=== PATIENT | female | born 1960 | race Caucasian/White ===

== ENCOUNTER → 2018-01-16 | Outpatient (CLI) | payer OTHER ==
[~2018-01-16] MED LIST: ADVAIRDISKUS; ALDACTONE PO; ALDACTONE50 MG PO; AMBIEN 5 MG TABL5 M1 PO; CELEBREX; CELEBREX 200 M200 MG PO; CIPROFLOXACIN500 M1 PO; COMBIVENT INH; ENABLEX15 MG PO; FLEXERIL; INDERAL LA 80 M80 M1 PO; LOVENOX SQ; NORCO 5-325 TA1 EACH PO; OXYIR5 MG PO; PHENAZOPYRIDIN200 M2 PO; PHENERGAN 25 MG25 MG PO; RESTORIL30 MG PO; SINGULAIR; SINGULAIR 10 MG10 M1 PO; TRAMADOL 50 MG50 MG PO; TYLENOL EXTRA500 MG PO
[2018-01-16 16:24] LABS: ABSOLUTE BASOPHILS 0.1 thou/uL (0.0-0.2); ABSOLUTE EOSINOPHILS 0.3 thou/uL (0.0-0.7); ABSOLUTE LYMPHOCYTES 2.5 thou/uL (0.8-5.3); ABSOLUTE MONOCYTES 0.8 thou/uL (0.0-1.2); ABSOLUTE NEUTROPHILS 3.8 thou/uL (1.6-8.1); BASOPHILS 1.1 %; EOSINOPHILS 3.4 %; HEMATOCRIT 42.3 % (37.0-47.0); HEMOGLOBIN 14.4 gm/dL (12.0-15.0); LYMPHOCYTES 33.8 %; MCH 30.5 pg (26.0-34.0); MCV 89.4 fL (80.0-100.0); MONOCYTES 10.6 %; MPV 7.2 fl. (7.2-11.1); NUCLEATED RBCS 0 /100WBC; PLATELET COUNT* 356 thou/uL (150-400); POLYS 51.1 %; RBC 4.73 mil/uL (4.20-5.00); RDW-CV 12.8 % (10.5-14.5); WBC 7.3 thou/uL (4.0-11.0)
[2018-01-16 16:36] LABS: CALCIUM 9.6 mg/dL (8.5-10.1); POTASSIUM 3.5 mmol/L (3.5-5.1)
[2018-01-16 16:38] LABS: AMP/METHAMP Negative (Negative); BARBITURATES Negative (Negative); BENZODIAZEPINES Negative (Negative); COCAINE Negative (Negative); METHADONE Negative (Negative); OPIATES Negative (Negative); PCP Negative (Negative); THC Negative (Negative)
--- NOTE | 2018-01-16 16:46 | EKG ---
[place] [address] ELECTROCARDIOGRAM REPORT Name: VANGIE FLORES Room: [facility]#: [id number] Admission: 01/16/18 Attend Phys: Rikki Daniel MD Discharge: Date of : 62 Report #: [id number] THIS REPORT FOR: //name// [facility] Test Date: 2018-01-16 Test Time: 16:06:20 Pat Name: VANGIE FLORES Department: Room: Gender: F [employer]: SKY : 1960 Requested By: Rikki Daniel Order Number: [id number] Reading MD: Armando Delong Measurements Intervals [place] Rate: 75 P: 66 CA: 170 QRS: -63 QRSD: 118 T: 74 QT: 421 QTc: 471 Interpretive Statements Sinus rhythm Incomplete RBBB and LAFB Compared to ECG 08/02/2010 09:37:34 no change Electronically Signed On 01-16-2018 16:45:51 [employer] CHEMI[employer] by Armando Delong [email or web address] <ELECTRONICALLY SIGNED> By: Armando Delong MD, [facility] 01/16/18 1645 1606 1606 Armando Delong MD, FACC /EPI
== END ==
LOC: M.RAD 15:51
PROVIDERS: Urology
DX: Z01.818 Encounter for other preprocedural examination (principal)

== ENCOUNTER 2018-01-29 11:01 | Emergency (ER) | payer OTHER ==
[~2018-01-29] VITALS: Ht 167.6 cm; Wt 120.6 kg
[~2018-01-29 11:01] MED LIST changes: -AMBIEN 5 MG TABL5 M1 PO; -CIPROFLOXACIN500 M1 PO; -PHENAZOPYRIDIN200 M2 PO; -PHENERGAN 25 MG25 MG PO; -TRAMADOL 50 MG50 MG PO; -TYLENOL EXTRA500 MG PO
[2018-01-29] MEDS ORDERED: SINGULAIR 10 MG10 M1 PO (11:12)
[2018-01-29] MEDS ORDERED: AMBIEN 5 MG TABL5 M1 PO (11:12)
[2018-01-29] MEDS ORDERED: TRAMADOL 50 MG50 MG PO (11:12)
[2018-01-29] MEDS ORDERED: TYLENOL EXTRA500 MG PO (11:12)
[2018-01-29] MEDS ORDERED: PHENAZOPYRIDIN200 M2 PO (11:13)
[2018-01-29 11:30] LABS: HEMATOCRIT 38.2 % (37.0-47.0); MCH 30.1 pg (26.0-34.0); MCV 88.8 fL (80.0-100.0); MPV 8.2 fl. (7.2-11.1); NUCLEATED RBCS 0 /100WBC; PLATELET COUNT* 201 thou/uL (150-400); RDW-CV 12.9 % (10.5-14.5); WBC 12.1 thou/uL (4.0-11.0)
[2018-01-29 11:37] LABS: CALCIUM 8.2 mg/dL (8.5-10.1); CREATININE 0.9 mg/dL (0.6-1.3)
[2018-01-29 11:39] LABS: POTASSIUM 2.9 mmol/L (3.5-5.1)
[2018-01-29 11:42] LABS: ALBUMIN 2.6 g/dL (3.4-5.0); TOTAL BILIRUBIN 0.7 mg/dL (<0.1-1.0); TOTAL PROTEIN 6.2 g/dL (6.4-8.2)
[2018-01-29 12:23] LABS: ABSOLUTE LYMPHOCYTES 1.9 thou/uL (0.8-5.3); ABSOLUTE NEUTROPHILS 9.2 thou/uL (1.6-8.1)
[2018-01-29 12:24] LABS: ANISOCYTOSIS 1+; PLATELET ESTIMATE ADEQUATE; POIKILOCYTOSIS 1+; POLYCHROMASIA 1+
[2018-01-29 12:25] LABS: TOXIC GRANULATION Occasional
[2018-01-29 12:34] LABS: URINE BILIRUBIN NEGATIVE (Negative); URINE BLOOD 3+ (Negative); URINE CLARITY CLEAR; URINE COLOR YELLOW; URINE GLUCOSE-RANDOM NEGATIVE (Negative); URINE KETONES NEGATIVE (Negative); URINE LEUKOCYTES-REFLEX 2+ (Negative); URINE NITRITE-REFLEX POSITIVE (Negative); URINE PROTEIN 1+ (Negative); URINE UROBILINOGEN 0.2 E.U./dl (0.2-1.0)
[2018-01-29 12:37] LABS: CASTS None Seen /LPF (None Seen); CRYSTALS None Seen /LPF (None Seen); MUCUS 0-3 Light strn/LPF (None Seen); SQUAMOUS 0-3 Few /LPF (0-3); URINE RBC 0-2 Rare /HPF (0-2)
[2018-01-29] MEDS ORDERED: CIPROFLOXACIN500 M1 PO (13:13)
[2018-01-29] MEDS ORDERED: PHENERGAN 25 MG25 MG PO (13:14)
[2018-01-29 13:23] VITALS: BP 105/66
== END 2018-01-29 13:24 | disposition home or self-care (01) ==
LOC: M.ERS 11:01
PROVIDERS: Emergency Medicine
DX: M54.5 Low back pain (principal); R19.7 Diarrhea, unspecified; J45.909 Unspecified asthma, uncomplicated; K21.9 Gastro-esophageal reflux disease without esophagitis; Z87.442 Personal history of urinary calculi; Z96.653 Presence of artificial knee joint, bilateral; Z91.048 Other nonmedicinal substance allergy status; Z88.1 Allergy status to other antibiotic agents; Z88.0 Allergy status to penicillin; Z88.2 Allergy status to sulfonamides

== ENCOUNTER → 2019-07-17 | Outpatient (CLI) | payer OTHER ==
[~2019-07-17] MED LIST changes: +AMBIEN 5 MG TABL5 M1 PO; +CIPROFLOXACIN500 M1 PO; +PHENAZOPYRIDIN200 M2 PO; +PHENERGAN 25 MG25 MG PO; +TRAMADOL 50 MG50 MG PO; +TYLENOL EXTRA500 MG PO
--- NOTE | 2019-07-17 12:31 | 2DMMODE ---
[place] [address] 2 D/M-MODE ECHOCARDIOGRAM Name: VANGIE FLORES Room: [facility]#: [id number] Admission: 07/17/19 Attend Phys: Jeromy Katz Discharge: Date of : 62 Date of Service: 07/17/19 1229 Report #: [id number] THIS REPORT FOR: cc: Renato Reyes John E. DO Liston, Michael J. MD [facility] ~ APPROVED REPORT Study performed: 07/17/2019 11:03:03 EXAM: Limited 2D Echocardiogram Patient Location: Out-Patient Status: routine BSA: 2.30 HR: 70 bpm BP: 120/84 mmHg Rhythm: NSR Other Information Study Quality: Adequate Indications Chemo Volumes Left Atrial Volume (Systole) LA ESV Index: 27.00 mL/m2 Left Ventricle The left ventricle is normal size. There is normal LV segmental wall motion. There is normal left ventricular wall thickness. The left ventricular systolic function is normal. LVEF is 65-70%. Right Ventricle The right ventricle is normal size. The right ventricular systolic function is normal. Atria The left atrium size is normal. The right atrium size is normal. Aortic Valve The aortic valve is normal in structure. [address] [address] 2 D/M-MODE ECHOCARDIOGRAM Name: VANGIE FLORES Room: [facility]#: [id number] Admission: 07/17/19 Attend Phys: Jeromy Katz Discharge: Date of : 62 Date of Service: 07/17/19 1229 Report #: [id number] Mitral Valve The mitral valve is normal in structure. Tricuspid Valve The tricuspid valve is normal in structure. Pulmonic Valve The pulmonary valve is normal in structure. Great Vessels The aortic root is normal in size. IVC is normal in size and collapses >50% with inspiration. Pericardium There is no pericardial effusion. <Conclusion> The left ventricle is normal size. There is normal left ventricular wall thickness. The left ventricular systolic function is normal. LVEF is 65-70%. Left ventricular wall motion is normal. Unable to calculate global longitudinal shortening due to poor endocardial definition. <ELECTRONICALLY SIGNED> By: Pawan Ott MD, FACC 07/17/19 1229 28 28 Pawan Ott MD, FACC /INF
--- NOTE | 2019-07-17 12:47 | NUR ---
RIGHT CEPHALIC VESSEL ACCESSED FOR SINGLE LUMEN 4 TAMAZIGHT PICC. LINE PRE-TRIMMED TO 41 CM AND ADVANCED TO THE ZERO LUKE WITH NO RESISTANCE MET. UPPER ARM CIRCUMFERENCE ABOVE INSERTION SITE= 19 1/2". SHERLOCK MAGNET AND 3CG CONFIIRMATION OF TIP TERMINATION AT THE CAVOATRIAL JUNCTION APPRECIATED. GUIDEWIRE REMOVED, LINE FLUSHED AND INSERTION SITE DRESSED. POST PROCEDURE VITALS: T=98.5, P=73, B/P=148/92, R=18, SPO2= 94% ON R/A. PATIENT DENIES ANY, PAIN, SHORTNESS OF AIR OR DIFFICULTY AFTER INSERTION. DISMISSED WITH DISCHARGE INSTRUCTIONS AND EDUCATIONAL PAMPHLET.
== END | disposition home or self-care (01) ==
LOC: M.CRD 07-16 11:31 → M.INFUS 12:00 → M.CRD 07-28 13:00
DX: C85.90 Non-Hodgkin lymphoma, unspecified, unspecified site (principal); Z98.890 Other specified postprocedural states; Z79.899 Other long term (current) drug therapy; Z88.8 Allergy status to other drugs, medicaments and biological substances; Z88.0 Allergy status to penicillin

== ENCOUNTER → 2019-12-03 | Outpatient (CLI) | payer OTHER | LOC: M.MRI 11-27 17:30 | PROVIDERS: ATTEND Orthopaedic Surgery | DX: M19.012 Primary osteoarthritis, left shoulder (principal); M75.122 Complete rotator cuff tear or rupture of left shoulder, not specified as traumatic; M25.412 Effusion, left shoulder; M25.712 Osteophyte, left shoulder; M25.812 Other specified joint disorders, left shoulder ==

== ENCOUNTER 2020-03-05 17:00 | Emergency (ER) | payer OTHER ==
[~2020-03-05] VITALS: Ht 167.6 cm; Wt 117.9 kg
[2020-03-05] MEDS ORDERED: LIPITOR40 MG PO (17:21)
[2020-03-05] MEDS ORDERED: TRAMADOL 50 MG50 MG PO (17:21)
[2020-03-05] MEDS ORDERED: NORCO 10-325 T1 EACH PO (17:22)
[2020-03-05] MEDS ORDERED: NABUMETONE 750750 M1 PO (18:04)
[2020-03-05 18:10] VITALS: BP 147/89
== END 2020-03-05 18:10 | disposition home or self-care (01) ==
LOC: M.ERS 17:00
DX: M79.672 Pain in left foot (principal); R60.0 Localized edema; J45.909 Unspecified asthma, uncomplicated; K21.9 Gastro-esophageal reflux disease without esophagitis; Z88.1 Allergy status to other antibiotic agents; Z88.0 Allergy status to penicillin; Z88.2 Allergy status to sulfonamides; Z88.8 Allergy status to other drugs, medicaments and biological substances; Z90.49 Acquired absence of other specified parts of digestive tract; Z90.710 Acquired absence of both cervix and uterus; Z96.653 Presence of artificial knee joint, bilateral

== ENCOUNTER → 2020-07-02 | Outpatient (CLI) | payer OTHER ==
[~2020-07-02] MED LIST changes: +LIPITOR40 MG PO; +NABUMETONE 750750 M1 PO; +NORCO 10-325 T1 EACH PO
== END ==
LOC: M.MRI 12:21
PROVIDERS: ATTEND Orthopaedic Surgery
DX: M51.36 Other intervertebral disc degeneration, lumbar region (principal); M48.07 Spinal stenosis, lumbosacral region; M47.816 Spondylosis without myelopathy or radiculopathy, lumbar region; M25.78 Osteophyte, vertebrae